=== PATIENT | female | born 1970 | race Asian ===

== ENCOUNTER 2019-09-11 12:37 | Outpatient (CLI) | payer OTHER ==
[2019-09-11 13:54] LABS: PLATELET COUNT 302 K/uL (152-353)
[2019-09-11 14:07] LABS: POTASSIUM 4.4 mmol/L (3.6-5.2)
== END 2019-09-11 19:01 | disposition home or self-care (01) ==
LOC: LAB 12:37
PROVIDERS: Physician Assistant
DX: E66.01 Morbid (severe) obesity due to excess calories (principal)
CPT/HCPCS: 80053; 80061; 83036; 85027

== ENCOUNTER 2020-08-15 16:49 | Outpatient (CLI) | payer OTHER ==
[2020-08-15 18:23] LABS: PLATELET COUNT 270 K/uL (152-353)
[2020-08-15 19:39] LABS: POTASSIUM 4.1 mmol/L (3.6-5.2)
== END 2020-08-15 20:09 | disposition home or self-care (01) ==
LOC: LAB 16:49
PROVIDERS: ATTEND Internal Medicine Endocrinology, Diabetes & Metabolism
DX: Z00.00 Encounter for general adult medical examination without abnormal findings (principal); R73.09 Other abnormal glucose; E66.01 Morbid (severe) obesity due to excess calories; G47.33 Obstructive sleep apnea (adult) (pediatric); K21.9 Gastro-esophageal reflux disease without esophagitis; R53.83 Other fatigue; Z79.899 Other long term (current) drug therapy; D64.9 Anemia, unspecified
CPT/HCPCS: 80053; 80061; 82043; 82306; 82570; 82607; 83036; 83525; 83735; 84681; 85027